=== PATIENT | female | born 1995 | race Hispanic/Latino ===

== ENCOUNTER 2022-01-05 22:29 | Emergency (ER) | payer BC, MEDICAID ==
[~2022-01-05] VITALS: Ht 152.4 cm; Wt 41.3 kg
[2022-01-05 22:55] VITALS: BP 122/77
[2022-01-05 22:59] LABS: BASOPHILS % (AUTO) 0.2 % (0.0-5.0); EOSINOPHILS % (AUTO) 0.9 % (0.0-8.0); HEMATOCRIT 38.4 % (36-48); MEAN CORPUSCULAR HEMOGLOBIN 27.9 pg (27.0-33.0); MEAN CORPUSCULAR HGB CONC 33.3 g/dL (32.0-36.0); MEAN CORPUSCULAR VOLUME 83.8 fL (79-99); MONOCYTES % (AUTO) 11.5 % (3.0-13.0); NEUTROPHILS % (AUTO) 62.1 % (40.0-77.0); PLATELET COUNT (AUTO) 153 K/uL (130-400); RED BLOOD CELL COUNT(AUTO) 4.58 MIL/uL (4.00-5.50); RED CELL DISTRIBUTION WIDTH 12.6 % (11.0-15.5); WHITE BLOOD COUNT (AUTO) 6.5 K/uL (4.8-10.8)
[2022-01-05] MEDS ORDERED: FAMOTIDINE 20MG VIAL IV ONE (23:00)
[2022-01-05] MEDS ORDERED: ONDANSETRON 4MG INJ IVP ONE (23:00)
[2022-01-05] MEDS ORDERED: 0.9%NACL 1000ML 1,000 ML IV ONE (23:00)
[2022-01-05] MEDS ORDERED: LIDOCAINE HCL 2% VISCOUS 15 ML UDCUP PO ONE (23:00)
[2022-01-05] MEDS ORDERED: MAG/ALUM/SIMETH 30 ML UDCUP PO ONE (23:00)
[2022-01-05] MEDS ORDERED: MORPHINE 2 MG SYG IVP ONE (23:00)
[2022-01-05] MEDS ORDERED: DICYCLOMINE HCL 10 MG/5 ML ML PO ONE (23:00)
[2022-01-05 23:06] LABS: APPEARANCE,URINE CLEAR (CLEAR); BILIRUBIN,URINE NEGATIVE (NEGATIVE); COLOR,URINE YELLOW (YELLOW); GLUCOSE, URINE (UA) NEGATIVE (NEGATIVE); KETONES,URINE 150 mg/dL (NEGATIVE); LEUKOCYTE ESTERASE ,URINE NEGATIVE Leu/uL (NEGATIVE); NITRATE,URINE NEGATIVE (NEGATIVE); OCCULT BLOOD,URINE NEGATIVE (NEGATIVE); PROTEIN,URINE 30 mg/dL (NEGATIVE); UROBILINOGEN,URINE 0.2 mg/dL (0.2-1.0)
[2022-01-05 23:07] LABS: CREATININE 0.8 mg/dL (0.5-1.5); POTASSIUM 3.2 mmol/L (3.5-5.1)
[2022-01-05 23:14] LABS: HCG,QUALITATIVE URINE NEGATIVE (NEGATIVE)
[2022-01-05 23:16] LABS: MUCUS,URINE MANY LPF (None Seen); SQUAMOUS EPITHELIAL CELL,UR MOD /HPF (0-2)
[2022-01-05] MEDS ORDERED: PHEN-847 PO (23:26)
[2022-01-05] MEDS ORDERED: CEPH500B PO (23:26)
[2022-01-05] MEDS ORDERED: CEFTRIAXONE 1G VIAL IVP ONE (23:30)
[2022-01-05] MEDS ORDERED: POTASSIUM BICARB/CIT AC 25 MEQ TABLET.EFF PO ONE (23:30)
== END 2022-01-05 23:41 | disposition home or self-care (01) ==
LOC: EDH 22:29
DX: N39.0 Urinary tract infection, site not specified (principal); R30.0 Dysuria
CPT/HCPCS: 99284; 96374; 96375; 96361; 80053; 83690; 85025; 81001; 81025; 36415; J3490; J7030; J0696; J2405